=== PATIENT | female | born 1965 | race Caucasian/White ===

== ENCOUNTER → 2017-06-07 | Outpatient (CLI) | payer BC ==
--- NOTE | 2017-06-07 16:22 | DIAGNOSTIC IMAGING REPORT ---
EXAMINATION: RENAL ULTRASOUND CLINICAL HISTORY: LEFT FLANK PAIN COMPARISON STUDY: None FINDINGS: The examination is somewhat limited due to the patient's large body habitus. The right kidney measures 10.3 cm. The left kidney measures 10.4 cm. There is no evidence of hydronephrosis. There is a 17 mm upper pole left renal cyst. No bladder abnormalities are visualized. Bilateral ureteral jets were visualized. IMPRESSION : 17 mm left renal cyst. Otherwise normal renal ultrasound. Electronically signed by: Darshan Spence M.D. 06/07/2017 4:20 PM Dictated Date/Time: 06/07/2017 4:19 PM
== END | disposition home or self-care (01) ==
LOC: C.ULTR 15:42
PROVIDERS: ATTEND Internal Medicine
DX: R10.9 Unspecified abdominal pain (principal); N28.1 Cyst of kidney, acquired